=== PATIENT | male | born 1960 | race Caucasian/White ===

== ENCOUNTER 2017-02-09 16:38 | Emergency (ER) | payer SELFPAY ==
[~2017-02-09] VITALS: Ht 188 cm; Wt 80.0 kg
[~2017-02-09 16:38] MED LIST: ASPI81CH CHEW; BACT800T5 PO; IBUP800T23 PO
[2017-02-09 16:49] VITALS: BP 132/86; PULSE 72; RESP 20; TEMP 98.2; O2SAT 99
[2017-02-09] MEDS ORDERED: KETOROLAC TROMETHAMINE 30 MG/ML (IVP) VIAL IV PUSH ONE (17:15)
[2017-02-09] MEDS ORDERED: ORPHENADRINE INJ 60 MG/2 ML AMP IV ONE (17:15)
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
[2017-02-09] MEDS ORDERED: TRAM50TA PO ×2 (19:59→20:01)
[2017-02-09] MEDS ORDERED: CYCL1TAB29 PO (20:02)
[2017-02-09] MEDS ORDERED: IBUP800T23 PO (20:02)
== END 2017-02-09 20:55 | disposition home or self-care (01) ==
LOC: NEPD 16:38
DX: S43.101A Unspecified dislocation of right acromioclavicular joint, initial encounter (principal); V19.9XXA Pedal cyclist (driver) (passenger) injured in unspecified traffic accident, initial encounter; Z88.0 Allergy status to penicillin; E78.00 Pure hypercholesterolemia, unspecified; Z86.73 Personal history of transient ischemic attack (TIA), and cerebral infarction without residual deficits
CPT/HCPCS: 71020; 72100; 72131; 73030; 96374; 96375; 99285; J1885; J2360